=== PATIENT | female | born 2005 | race Caucasian/White ===

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

== ENCOUNTER 2023-03-22 21:29 | Emergency (ER) | payer OTHER ==
[~2023-03-22] VITALS: Ht 162.6 cm; Wt 83.5 kg
[~2023-03-22 21:29] MED LIST changes: +AZIT250T3 PO; +IBUP-1842 PO
[2023-03-22 21:38] VITALS: BP 138/85; PULSE 70; RESP 18; TEMP 98.2; O2SAT 100
[2023-03-22] MEDS ORDERED: LEVO-481 PO (22:31)
== END 2023-03-22 22:37 | disposition home or self-care (01) ==
LOC: MED 21:29
DX: J02.9 Acute pharyngitis, unspecified (principal); J45.909 Unspecified asthma, uncomplicated; I25.10 Atherosclerotic heart disease of native coronary artery without angina pectoris; Z88.0 Allergy status to penicillin; Z79.899 Other long term (current) drug therapy
CPT/HCPCS: 99283

== ENCOUNTER 2023-04-13 02:00 | Emergency (ER) | payer OTHER ==
[~2023-04-13] VITALS: Ht 162.6 cm; Wt 81.6 kg
[~2023-04-13 02:00] MED LIST changes: +LEVO-481 PO
[2023-04-13 02:08] VITALS: BP 131/70; PULSE 75; RESP 20; TEMP 97.4; O2SAT 99
[2023-04-13] MEDS ORDERED: KETOROLAC 30 MG/ML VIAL IVP ONE (02:35)
[2023-04-13] MEDS ORDERED: ONDANSETRON 4 MG/2 ML VIAL IVP ONE (02:35)
[2023-04-13 02:55] LABS: BASOPHILS # (AUTO) 0.1 K/uL (0.00-0.22); BASOPHILS % (AUTO) 0.5 % (0.0-2.0); EOSINOPHILS # (AUTO) 0.4 K/uL (0-0.4); EOSINOPHILS % (AUTO) 2.9 % (0.0-4.0); HEMATOCRIT 39.8 % (36-48); LYMPHOCYTES # (AUTO) 4.7 K/uL (2.5-16.5); LYMPHOCYTES % (AUTO) 35.8 % (20.5-51.1); MEAN CORPUSCULAR HEMOGLOBIN 27 pg (27-31); MEAN CORPUSCULAR HGB CONC 33 g/dL (33-37); MEAN CORPUSCULAR VOLUME 82.4 fL (80-94); MONOCYTES # (AUTO) 0.9 K/uL (0.8-1.0); MONOCYTES % (AUTO) 6.7 % (1.7-9.3); NEUTROPHILS # (AUTO) 7.2 K/uL (1.8-7.7); NEUTROPHILS % (AUTO) 54.1 % (42.2-75.2); PLATELET COUNT (AUTO) 418 K/uL (140-450); RED BLOOD CELL COUNT(AUTO) 4.84 MIL/uL (4.20-5.40); RED CELL DISTRIBUTION WIDTH 13.9 % (11.6-13.7); WHITE BLOOD COUNT (AUTO) 13.2 K/uL (4.5-11.0)
[2023-04-13 03:14] LABS: ANION GAP 11.9 (8-16); CALCIUM 8.9 mg/dL (8.5-10.1); CARBON DIOXIDE 26.9 mmol/L (21-32); CREATININE 0.8 mg/dL (0.6-1.3); POTASSIUM 3.8 mmol/L (3.5-5.1); TOTAL BILIRUBIN 0.2 mg/dL (0.0-1.0); TOTAL PROTEIN, SERUM 8.4 g/dL (6.4-8.2)
[2023-04-13] MEDS ORDERED: ACET-10509 PO (05:04)
[2023-04-13 05:56] VITALS: BP 131/70; PULSE 75; RESP 20; TEMP 97.4; O2SAT 99
== END 2023-04-13 05:50 | disposition home or self-care (01) ==
LOC: MED 02:00
DX: S39.91XA Unspecified injury of abdomen, initial encounter (principal); J45.909 Unspecified asthma, uncomplicated; Z79.899 Other long term (current) drug therapy; Z79.2 Long term (current) use of antibiotics; Z79.1 Long term (current) use of non-steroidal anti-inflammatories (NSAID); Z88.0 Allergy status to penicillin; W50.1XXA Accidental kick by another person, initial encounter; Y93.89 Activity, other specified; Y92.89 Other specified places as the place of occurrence of the external cause; Y99.0 Civilian activity done for income or pay
CPT/HCPCS: 36415; 74177; 80053; 81002; 81025; 83690; 85025; 96374; 96375; 99285; J1885; J2405; Q9967

== ENCOUNTER 2023-07-10 22:08 | Emergency (ER) | payer OTHER ==
[~2023-07-10] VITALS: Ht 162.6 cm; Wt 81.6 kg
[~2023-07-10 22:08] MED LIST changes: +ACET-10509 PO
[2023-07-10 22:23] VITALS: BP 118/82; PULSE 72; RESP 16; TEMP 97.6; O2SAT 99
[2023-07-10 23:05] VITALS: O2SAT 98
[2023-07-10 23:07] VITALS: BP 115/62; PULSE 64; RESP 12
[2023-07-11 00:58] LABS: HEMATOCRIT 37.2 % (36-48); HEMOGLOBIN 12.4 g/dL (12.0-16.0); MEAN CORPUSCULAR HEMOGLOBIN 28 pg (27-31); MEAN CORPUSCULAR HGB CONC 33 g/dL (33-37); MEAN CORPUSCULAR VOLUME 82.5 fL (80-94); PLATELET COUNT (AUTO) 258 K/uL (140-450); RED BLOOD CELL COUNT(AUTO) 4.51 MIL/uL (4.20-5.40); RED CELL DISTRIBUTION WIDTH 13.7 % (11.6-13.7); WHITE BLOOD COUNT (AUTO) 12.5 K/uL (4.5-11.0)
[2023-07-11 01:12] LABS: ALANINE AMINOTRANSFERASE 18 U/L (12-78); ALBUMIN 3.4 g/dL (3.4-5.0); ALKALINE PHOSPHATASE 83 U/L (50-136); ANION GAP 14.1 (8-16); ASPARTATE AMINOTRANSFERASE 15 U/L (15-37); CALCIUM 8.7 mg/dL (8.5-10.1); CARBON DIOXIDE 24.8 mmol/L (21-32); CHLORIDE 104 mmol/L (98-107); CREATININE 0.9 mg/dL (0.6-1.3); GFR ARICAN-AMERICAN 103 mL/min (>90); GFR NON ARICAN-AMERICAN 85 mL/min (>90); GLUCOSE 84 mg/dL (74-106); LIPASE 33 U/L (16-77); POTASSIUM 3.9 mmol/L (3.5-5.1); SODIUM SERUM 139 mmol/L (136-145); TOTAL BILIRUBIN 0.2 mg/dL (0.0-1.0); TOTAL PROTEIN, SERUM 8.6 g/dL (6.4-8.2); UREA NITROGEN, BLOOD 13 mg/dL (7-18)
[2023-07-11] MEDS ORDERED: ONDANSETRON 4 MG/2 ML VIAL ONE (01:14)
[2023-07-11 01:25] VITALS: O2SAT 98
[2023-07-11 01:31] LABS: EOSINOPHILS % (MANUAL) 2 % (0-4); LYMPHOCYTES % (MANUAL) 38 % (20-46); MONOCYTES % (MANUAL) 6 % (5-12)
== END 2023-07-11 02:24 | disposition home or self-care (01) ==
LOC: MED 22:08
DX: R07.9 Chest pain, unspecified (principal); J45.909 Unspecified asthma, uncomplicated; Z79.899 Other long term (current) drug therapy; Z88.0 Allergy status to penicillin
CPT/HCPCS: 36415; 71046; 80053; 81025; 83690; 84484; 84702; 85025; 85379; 93005; 99285; J2405

== ENCOUNTER 2023-07-25 01:05 | Emergency (ER) | payer OTHER ==
[~2023-07-25] VITALS: Ht 162.6 cm; Wt 82.1 kg
[2023-07-25 01:10] VITALS: BP 115/80; PULSE 87; RESP 17; TEMP 98; O2SAT 100
[2023-07-25 02:09] LABS: APPEARANCE,URINE CLEAR (CLEAR); BILIRUBIN,URINE NEGATIVE (NEGATIVE); BLOOD, URINE NEGATIVE (NEGATIVE); COLOR,URINE YELLOW (YELLOW); LEUKOCYTE ESTERASE ,URINE NEGATIVE (NEGATIVE); NITRITE, URINE NEGATIVE (NEGATIVE); PROTEIN,URINE NEGATIVE (NEGATIVE); UGLUCOSE NEGATIVE (NEGATIVE); UROBILINOGEN,URINE 0.2 EU/dL (0.2 - 1)
[2023-07-25 02:45] LABS: BASOPHILS # (AUTO) 0.1 K/uL (0.00-0.22); BASOPHILS % (AUTO) 0.6 % (0.0-2.0); EOSINOPHILS # (AUTO) 0.5 K/uL (0-0.4); EOSINOPHILS % (AUTO) 3.7 % (0.0-4.0); HEMOGLOBIN 11.8 g/dL (12.0-16.0); LYMPHOCYTES # (AUTO) 3.3 K/uL (2.5-16.5); LYMPHOCYTES % (AUTO) 25.5 % (20.5-51.1); MEAN CORPUSCULAR HEMOGLOBIN 28 pg (27-31); MEAN CORPUSCULAR HGB CONC 34 g/dL (33-37); MEAN CORPUSCULAR VOLUME 81.7 fL (80-94); MONOCYTES # (AUTO) 0.9 K/uL (0.8-1.0); MONOCYTES % (AUTO) 6.9 % (1.7-9.3); NEUTROPHILS # (AUTO) 8.2 K/uL (1.8-7.7); NEUTROPHILS % (AUTO) 63.3 % (42.2-75.2); PLATELET COUNT (AUTO) 363 K/uL (140-450); RED BLOOD CELL COUNT(AUTO) 4.29 MIL/uL (4.20-5.40); RED CELL DISTRIBUTION WIDTH 13.9 % (11.6-13.7)
[2023-07-25] MEDS ORDERED: DOXY1TCP PO (03:15)
[2023-07-25 03:30] VITALS: BP 119/80; PULSE 83; RESP 17; TEMP 98; O2SAT 100
== END 2023-07-25 03:30 | disposition home or self-care (01) ==
LOC: MED 01:05
DX: O20.0 Threatened abortion (principal); J45.909 Unspecified asthma, uncomplicated; Z3A.01 Less than 8 weeks gestation of pregnancy; Z88.0 Allergy status to penicillin; Z79.899 Other long term (current) drug therapy
CPT/HCPCS: 36415; 76817; 81003; 84702; 85025; 86900; 86901; 99284